=== PATIENT | male | born 1975 | race Caucasian/White ===

== ENCOUNTER 2016-04-22 11:38 | Emergency (ER) | payer OTHER ==
[~2016-04-22] VITALS: Ht 175.3 cm; Wt 77.1 kg
--- NOTE | 2016-04-22 13:22 | Diagnostic Imaging Report ---
EXAMINATION: Lumbar spine at 1:18 p.m. INDICATION: Back pain. AP, lateral, and spot lateral views were obtained. There are no prior studies available for comparison. FINDINGS: The lateral view shows the vertebral body heights and alignment to be generally within normal limits. The intervertebral disc spaces are fairly well maintained. There is no fracture or acute bony abnormality evident. There is mild symmetrical sclerosis of the sacroiliac joints. There is no sign of a paraspinal mass. However, there do seem to be calcific densities overlying each renal contour. These may be within the kidneys. This includes a 6.5 mm calculus overlying the inferior pole of the left kidney. There is a slightly smaller calcific density overlying the inferior pole of the right kidney. If further study is desired, then CT would be recommended. IMPRESSION: 1. There is no evidence for an acute bony abnormality. 2. If there is clinical concern regarding spinal stenosis or nerve root encroachment, then MRI would be recommended for further study. 3. There is a question of bilateral nephrolithiasis. Recommendations as above. Dictated by: Dictated on workstation # [id number]
[2016-04-22] MEDS ORDERED: Flexeril PO (13:35)
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
[2016-04-22] MEDS ORDERED: IBUPROFEN 800 MG (MOTRIN) TAB PO ONE (13:45)
[2016-04-22] MEDS ORDERED: CYCLOBENZAPRINE 10 MG (FLEXERIL) TAB PO SCH (13:45)
[2016-04-22 13:48] VITALS: BP 138/76
== END 2016-04-22 13:48 | disposition home or self-care (01) ==
LOC: EDUNIT# 11:38 → ER 11:40
DX: M54.5 Low back pain (principal); F17.210 Nicotine dependence, cigarettes, uncomplicated
CPT/HCPCS: 72100

== ENCOUNTER 2021-05-08 07:19 | Emergency (ER) | payer SELFPAY ==
[~2021-05-08] VITALS: Ht 175.3 cm; Wt 88.4 kg
[~2021-05-08 07:19] MED LIST: Flexeril PO
--- NOTE | 2021-05-08 07:55 | ED General ---
General Chief Complaint: Dizziness/Syncope Stated Complaint: DIZZINESS Nursing Triage Note: PT AMB TO [facility] WITH COMPLAINT OF DIZZINESS AND CHANGE IN VISION THAT STARTED OVER THE WEEKEND. STATES HE FEELS LIKE THERE IS A KNOT ON THE BACK OF HIS HEAD WHEN SYMPTOMS WORSEN. Source of Information: Patient History of Present Illness Date Seen by Provider: May 08, 2021 Time Seen by Provider: 07:29 Initial Comments 46-year-old male with no significant past medical history coming in because he is feeling lightheaded and like the room is spinning at times. Is been going on intermittently since Saturday. Worse when he changes positions and then goes away. Never really had this before. Denies any nausea, vomiting, diarrhea, hearing changes, ear ringing, chest pain, shortness of breath, abdominal pain, weakness, numbness, true vision changes, voice changes, rash, or any other concerns. Has been eating and drinking okay. 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 Denies any syncope. Also notes a knot on the back of his head which she says he has had for years, and he thought it grew for a little bit and then shrunk back down this weekend. Allergies and Home Medications Allergies Coded Allergies: No Known Drug Allergies (Unverified , 04/22/16) Patient Home Medication List Home Medication List Reviewed: Yes Meclizine HCl (Meclizine HCl) 25 Mg Tablet, 25 MG PO BID PRN for DIZZINESS Prescribed by: FANI GERMAN on 05/08/21 0808 [Flexeril] , 5 MG PO TID PRN for PAIN Prescribed by: LARRY PAULINO on 04/22/16 1335 Review of Systems Review of Systems Constitutional: No chills, No fever EENTM: No blurred vision, No double vision Respiratory: No cough Cardiovascular: No chest pain Gastrointestinal: No abdominal pain Genitourinary: no symptoms reported Musculoskeletal: no symptoms reported Skin: no symptoms reported Psychiatric/Neurological: No Symptoms Reported; Denies Numbness, Denies Weakness Hematologic/Lymphatic: No Symptoms Reported Immunological/Allergic: no symptoms reported Past Udbzdcu-Gpvopk-Szshtu Hx Patient Social History Tobacco Use?: Yes Tobacco type used: Cigarettes Smoking Status: Current Everyday Smoker Use of E-Cig and/or Vaping dev: No Substance use?: No Alcohol Use?: No Pt feels they are or have been: No Immunizations Up To Date First/Initial COVID19 Vaccinat: JANUARY 2021 Second COVID19 Vaccination Dima: JANUARY 2021 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 oz. 77.368922lx; 28.00 BMI Method:Stated General Appearance: No Apparent Distress, WD/WN Eyes: Bilateral Eye Normal Inspection, Bilateral Eye PERRL, Bilateral Eye Other (Lateral gaze nystagmus which is fatigable) HEENT: PERRL/EOMI, TMs Normal, Normal ENT Inspection, Pharynx Normal Neck: Full Range of Motion, Normal Inspection, Non Tender, Supple Respiratory: Chest Non Tender, Lungs Clear, Normal Breath Sounds, No Accessory Muscle Use, No Respiratory Distress Cardiovascular: Regular Rate, Rhythm, No Edema, Normal Peripheral Pulses Gastrointestinal: Normal Bowel Sounds, Non Tender, Soft; No Distended, No Guarding Back: Normal Inspection, No CVA Tenderness, No Vertebral Tenderness Extremity: Normal Capillary Refill, Normal Inspection, Normal Range of Motion, Non Tender, No Calf Tenderness, No Pedal Edema Neurologic/Psychiatric: Alert, Oriented x3, No Motor/Sensory Deficits, Normal Mood/Affect, 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, Other (Normal hitcir-vw-nnnd, normal zgcl-wk-fcoc, normal gait, normal tandem stance with eyes closed, positive [place]- Hallpike with improvement with Kelley maneuver, HINTS exam points to peripheral cause) Skin: Normal Color, Warm/Dry Lymphatic: No Adenopathy Progress/Results/Core Measures Suspected Sepsis SIRS Temperature: Pulse: 84 Respiratory Rate: 19 Blood Pressure 160 /106 Mean: 124 Results/Orders My Orders Orders - FANI GERMAN MD Ekg Tracing (05/08/21 07:51) Acetaminophen Tablet (Tylenol Tablet) (05/08/21 08:00) Meclizine Tablet (Antivert Tablet) (05/08/21 08:00) Medications Given in ED Current Medications Medications Dose Ordered Sig/Elzbieta Route Start Time Stop Time Status Last Admin Dose Admin Acetaminophen 1,000 mg ONCE ONCE PO 05/08/21 08:00 05/08/21 08:01 DC 05/08/21 08:05 1,000 MG Meclizine HCl 25 mg ONCE ONCE PO 05/08/21 08:00 05/08/21 08:01 DC 05/08/21 08:05 25 MG Vital Signs/I&O 05/08/21 05/08/21 07:32 08:34 Pulse 84 80 Resp 19 22 B/P (MAP) 160/106 (124) 146/99 Pulse Ox 99 98 O2 Delivery Room Air Room Air Capillary Refill : Less Than 3 Seconds Blood Pressure Mean: 124 Progress Note : Progress Note 46-year-old male with above history coming in due to dizziness. ABCs were intact and vitals were stable on presentation. Comprehensive neuro exam normal including HINTS exam pointing towards a peripheral cause. Valorie-Hallpike maneuver was positive and he had improvement with the Kelley maneuver. He was given meclizine afterwards and oral fluids. We will give him a prescription for this to trial for the next week or so and refer him to ENT in case this continues. Exam mostly points towards BPPV as a cause. No hearing loss or other concerns. I believe he is stable for discharge with outpatient follow-up. He was sent home with strict return precautions peer ECG Initial ECG Impression Date: May 08, 2021 Initial ECG Impression Time: 08:22 Initial ECG Rate: 81 Initial ECG Rhythm: Normal Sinus Comment Narrow QRS, normal axis, no significant ST change Departure Impression Primary Impression: BPPV (benign paroxysmal positional vertigo) Qualified Codes: H81.10 - Benign paroxysmal vertigo, unspecified ear Disposition: 01 HOME, SELF-CARE Condition: Stable Departure-Patient Inst. Decision time for Depature: 08:05 Referrals: NATALIE GURROLA MD NO,LOCAL PHYSICIAN (PCP) Primary Care Physician Patient Instructions: Vertigo (a Type of Dizziness) (DC) Add. Discharge Instructions: Try to drink plenty of fluids over the next several days. Take Tylenol or ibuprofen for your headache. You can take meclizine which I wrote a prescription for if you are having dizziness, it can make you a little tired. If you are feeling dizzy today I would take the day off work. If this continues over the next several days then I would follow-up with an ENT doctor like Dr. Gurrola. If you develop other symptoms such as fever, cough, nausea, diarrhea, or any other concerns like that then I would be sure to get tested for Covid. You can watch youtube videos on the Kelley maneuver and do that at home to help with symptoms as well. Scripts Meclizine HCl (Meclizine HCl) 25 Mg Tablet 25 MG PO BID PRN for DIZZINESS for 7 Days, #14 TAB Prov: FANI GERMAN MD 05/08/21 Work/School Note: Work Release Form Date Seen in the Emergency Department: May 08, 2021 Return to Work: May 09, 2021 Restrictions: No Restrictions FANI GERMAN MD May 08, 2021 07:55
[2021-05-08] MEDS ORDERED: ACETAMINOPHEN 500 MG TAB (TYLENOL) PO ONE (08:00)
[2021-05-08] MEDS ORDERED: MECLIZINE 25 MG (ANTIVERT) TAB PO ONE (08:00)
[2021-05-08] MEDS ORDERED: MECL-149 PO (08:08)
[2021-05-08 08:34] VITALS: BP 146/99
== END 2021-05-08 08:36 | disposition home or self-care (01) ==
LOC: EDUNIT# 07:19 → ER 07:22
DX: H81.10 Benign paroxysmal vertigo, unspecified ear (principal); F17.210 Nicotine dependence, cigarettes, uncomplicated
CPT/HCPCS: 93005

== ENCOUNTER 2021-07-07 02:04 | Emergency (ER) | payer SELFPAY ==
[~2021-07-07] VITALS: Ht 175 cm; Wt 86.3 kg
[~2021-07-07 02:04] MED LIST changes: +MECL-149 PO
[2021-07-07 02:05] VITALS: BP 169/98
[2021-07-07] MEDS ORDERED: ACETAMINOPHEN 500 MG TAB (TYLENOL) PO ONE (02:15)
[2021-07-07] MEDS ORDERED: IBUPROFEN 600 MG (MOTRIN) TAB PO ONE (02:15)
[2021-07-07] MEDS ORDERED: IBUP-1773 PO (02:16)
--- NOTE | 2021-07-07 02:16 | ED Lower Extremity ---
General Stated Complaint: RT HEEL PAIN Source: patient, EMS Exam Limitations: no limitations History of Present Illness Date Seen by Provider: Jul 07, 2021 Time Seen by Provider: 02:05 Initial Comments 46yoM with no significant PMH coming in due to R heel pain. This has been going on for 2 weeks. There is no injury. Worse with more standing. 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 Takes aspirin every once while for the pain which helps. He is never seen anyone for this in the past. He is otherwise denying any other acute complaints Allergies and Home Medications Allergies Coded Allergies: No Known Drug Allergies (Unverified , 04/22/16) Patient Home Medication List Home Medication List Reviewed: Yes Ibuprofen (Ibuprofen) 600 Mg Tablet, 600 MG PO Q6H PRN for PAIN-MILD Prescribed by: FANI GERMAN on 07/07/21 0216 Meclizine HCl (Meclizine HCl) 25 Mg Tablet, 25 MG PO BID PRN for DIZZINESS Prescribed by: FANI GERMAN on 05/08/21 0808 [Flexeril] , 5 MG PO TID PRN for PAIN Prescribed by: LARRY PAULINO on 04/22/16 1335 Review of Systems Constitutional: No chills EENTM: No blurred vision Respiratory: No cough Cardiovascular: No chest pain Gastrointestinal: no symptoms reported Genitourinary: no symptoms reported Musculoskeletal: other (right heel pain) Skin: no symptoms reported Psychiatric/Neurological: No Symptoms Reported All Other Systems Reviewed Negative Unless Noted: Yes Past Bglresl-Qksqll-Tfzrcb Hx Patient Social History Tobacco Use?: No Substance use?: No Alcohol Use?: No Immunizations Up To Date First/Initial COVID19 Vaccinat: JANUARY 2021 Second COVID19 Vaccination Dima: JANUARY 2021 Seasonal Allergies Seasonal Allergies: No Past Medical History Surgeries: No Physical Exam Vital Signs Vital Signs - First Documented 07/07/21 02:05 Temp 36.7 Pulse 97 Resp 20 B/P (MAP) 169/98 (121) Pulse Ox 99 O2 Delivery Room Air Capillary Refill : Height, Weight, BMI Height: 5'9" Weight: 170lbs. oz. 77.460054mp; 28.00 BMI Method:Stated General Appearance: WD/WN, no apparent distress HEENT: PERRL/EOMI, normal ENT inspection, pharynx normal Neck: non-tender, full range of motion, supple, normal inspection Cardiovascular: regular rate, rhythm, no edema, no murmur Respiratory: chest non-tender, lungs clear, normal breath sounds, no respiratory distress, no accessory muscle use Gastrointestinal: normal bowel sounds, non tender, soft; No distended, No guarding, No rebound Back: normal inspection, no CVA tenderness Hips: bilateral hip non-tender, bilateral hip normal inspection, bilateral hip normal range of motion, bilateral hip no evidence of injury Legs: bilateral leg non-tender, bilateral leg normal inspection, bilateral leg normal range of motion, bilateral leg no evidence of injury Knees: bilateral knee non-tender, bilateral knee normal inspection, bilateral knee normal range of motion, bilateral knee no evidence of injury Ankles: bilateral ankle non-tender, bilateral ankle normal inspection, bilateral ankle normal range of motion, bilateral ankle no evidence of injury Feet: left foot non-tender; bilateral foot normal inspection, bilateral foot normal range of motion, bilateral foot no evidence of injury; right foot bone tenderness (tender along the calcaneus at the insertion of the plantar fascia), right foot soft tissue tenderness Neurologic/Tendon: normal sensation, normal motor functions, normal tendon functions Neurologic/Psychiatric: no motor/sensory deficits, alert, normal mood/affect Skin: normal color, warm/dry Lymphatic: no adenopathy Progress/Results/Core Measures Results/Orders My Orders Orders - FANI GERMAN MD Foot, Right, 3 View (07/07/21 02:09) Ibuprofen Tablet (Motrin Tablet) (07/07/21 02:15) Acetaminophen Tablet (Tylenol Tablet) (07/07/21 02:15) Medications Given in ED Current Medications Medications Dose Ordered Sig/Elzbieta Route Start Time Stop Time Status Last Admin Dose Admin Acetaminophen 1,000 mg ONCE ONCE PO 07/07/21 02:15 07/07/21 02:16 DC 07/07/21 02:14 1,000 MG Ibuprofen 600 mg ONCE ONCE PO 07/07/21 02:15 07/07/21 02:16 DC 07/07/21 02:13 600 MG Vital Signs/I&O 07/07/21 02:05 Temp 36.7 Pulse 97 Resp 20 B/P (MAP) 169/98 (121) Pulse Ox 99 O2 Delivery Room Air Progress Progress Note : Progress Note 46-year-old male coming in for right heel pain that is nontraumatic. Exam consistent with plantar fasciitis. Will recommend supportive care. X-ray ordered and interpreted by me showing no fracture or dislocation. He was discharged home in stable condition with strict return precautions Departure Impression Primary Impression: Plantar fasciitis, right Disposition: 01 HOME, SELF-CARE Condition: Stable Departure-Patient Inst. Decision time for Depature: 02:28 Referrals: NO,LOCAL PHYSICIAN (PCP/Family) Primary Care Physician Patient Instructions: Heel Pain Caused by Plantar Fasciitis Add. Discharge Instructions: I recommend buying ozxo-kor-gawverc foot orthotics call [employer]. The blue ones would be best for you. Otherwise take ibuprofen 600mg every 6 hours for pain. If you have pain on top of that then take tylenol 1000mg every 6 hours. Ice the area three times a day if having pain. Stretch your calf like we showed you at least 5-10 times per day for at least 20 seconds each time. If you do all these things it will slowly improvement over weeks to months. Follow up with Dr. Radha enriquez [facility] who is a foot doctor if you are not getting better. Scripts Ibuprofen (Ibuprofen) 600 Mg Tablet 600 MG PO Q6H PRN for PAIN-MILD for 10 Days, #40 TAB Prov: FANI GERMAN MD 07/07/21 Work/School Note: Work Release Form Date Seen in the Emergency Department: Jul 07, 2021 Return to Work: Jul 08, 2021 Restrictions: No Restrictions Other Restrictions Listed Below: Please allow Ravin to sit as much as possible while at work. FANI GERMAN MD Jul 07, 2021 02:16
--- NOTE | 2021-07-07 06:22 | Diagnostic Imaging Report ---
INDICATION: Right foot pain. FINDINGS: 3 views. There are no fractures or dislocations. The articulating surfaces are smooth. The joint spaces are well-maintained. No periosteal reactive changes. Mild arthritic changes noted of the 1st MP joint. Overall alignment is good with no dislocations. No radiopaque foreign bodies. 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 Dictated by: Dictated on workstation # [id number]
== END 2021-07-07 02:39 | disposition home or self-care (01) ==
LOC: EDUNIT# 02:04 → ER 02:07
DX: M72.2 Plantar fascial fibromatosis (principal)
CPT/HCPCS: 73630